=== PATIENT | male | born 1995 | race African-American/Black ===

== ENCOUNTER 2016-12-18 00:03 | Emergency (ER) | payer OTHER ==
[~2016-12-18] VITALS: Ht 177.8 cm; Wt 89.8 kg
[2016-12-18 00:09] VITALS: TEMP 36.7; Ht 177.8 cm; Wt 89.8 kg
[2016-12-18] MEDS ORDERED: LIDOCAINE/EPINEPH/TETRACAINE 1 EA SYR EXT STA (00:31)
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
[2016-12-18 02:07] VITALS: BP 112/54; PULSE 94; O2SAT 98
== END 2016-12-18 02:08 | disposition home or self-care (01) ==
LOC: C.EDB 00:05 → C.EDC 02:08
DX: S01.81XA Laceration without foreign body of other part of head, initial encounter (principal); W22.8XXA Striking against or struck by other objects, initial encounter

== ENCOUNTER 2016-12-24 11:26 | Emergency (ER) | payer OTHER ==
[2016-12-24 11:28] VITALS: TEMP 36.7
--- NOTE | 2016-12-24 11:51 | EMERGENCY ROOM VISIT NOTE ---
ED Visit Note First contact with patient: 11:39 CHIEF COMPLAINT: Suture removal HISTORY OF PRESENT ILLNESS: This 21-year-old male patient returns to the ED today for removal of sutures that were placed 6 days ago. There has been no swelling, redness, or drainage from the wound. The patient feels like the laceration is healing well. REVIEW OF SYSTEMS: A 6 system review of systems was completed with positives and pertinent negatives listed in the HPI. PMH: Unchanged from previous visit. ALLERGIES: No known drug allergies PHYSICAL EXAM: Vital Signs: Reviewed Nurse's notes, vital signs stable. GENERAL : The 21-year-old male, in no acute distress. SKIN: There is a sutured wound on the forehead with no signs of infection. There is no erythema, swelling, or tenderness. EMERGENCY DEPARTMENT COURSE: 12 sutures were removed without any difficulty and there was no separation of the wound edges. The patient was discharged home in good condition. DIAGNOSIS: Healing laceration and suture removal DISCHARGE INSTRUCTIONS AND TREATMENT: Wash any remaining crusts off of the wound today and resume your normal activities. Current/Historical Medications No Active Prescriptions or Reported Meds Allergies Coded Allergies: No Known Allergies (Unverified , 12/24/16) Vital Signs Date Time Temp Pulse Resp B/P Pulse Ox O2 Delivery O2 Flow Rate FiO2 12/24/16 11:55 88 20 99 12/24/16 11:28 36.7 88 20 145/76 99 Room Air Departure Information Impression Primary Impression: Encounter for removal of sutures Dispostion Home / Self-Care Condition GOOD Prescriptions No Active Prescriptions or Reported Meds Referrals No Doctor, Assigned (PCP) Patient Instructions [facility] Additional Instructions Wash any remaining crusts off of the wound today and resume your normal activities.
[2016-12-24 11:55] VITALS: BP 145/76; PULSE 88; O2SAT 99
== END 2016-12-24 11:55 | disposition home or self-care (01) ==
LOC: C.EDB 11:27 → C.EDD 11:55
DX: Z48.02 Encounter for removal of sutures (principal)